=== PATIENT | male | born 1960 | race Two or more races ===

== ENCOUNTER 2024-02-15 14:57 | Outpatient (AMB) | payer MEDICAID, SELFPAY ==
--- NOTE | 2024-02-15 14:59 | A.OFFVIS_ITS ---
Intake Vital Signs 02/15/24 15:01 Height 5 ft 10.08 in Weight 186 lb 11.704 oz BMI 26.7 BP 128/70 Blood Pressure Location Lt brachial Position Sitting Pulse 58 Pulse Source Pulse Oximeter Intake Visit Reasons: Inflammatory polyarthropathy Intake Note: New patient presents today for Inflammatory Polyarthyopathy, referred by PCP. Foreign Law Consultant Required: No Accompanied by: self Allergies Tegaderm Adverse Reaction (Unknown, Uncoded 02/15/24 15:07) Rash HPI HPI Comments History of Present Illness Details Mr. 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 According to records from virtual visit with Dr. Echavarria (06/2020) informed that the patient has been treated with MTX, HCQ . On April 12 he will be having a procedure done on his right great and second toe. He now takes Ibuprofen and has tried MTX, HCQ. He has hx of peptic ulcers PFS Medical History (Updated 02/15/24 @ 15:44 by BHARTI Boss) Swelling of right foot Swelling of foot joint History of ankylosing spondylitis Bilateral hand swelling Surgical History Hx of knee surgery Hx of shoulder surgery Hx of foot surgery History of back surgery Family History Mother No known health problems Father Stroke Social History Alcohol intake: former Patient Tobacco Use Status: Former Tobacco user Review of Systems Const All systems reviewed & are unremarkable except as noted in HPI and below Physical Exam Vital Signs: Last Vital Signs Pulse 58 02/15/24 15:01 BP 128/70 02/15/24 15:01 BMI result Body Mass Index 26.7 APPEARANCE: Patient in no acute distress EYES no redness, normal EARS:? External ear normal. NOSE/SINUS:? Airflow through both nares, no nasal discharge, no bleeding THROAT:? Oral mucosa moist, no ulcerations NECK:? No thyromegaly or masses, no adenopathy, trachea midline. HEART:? Regular rhythm, S1-S2 heard, no murmurs, rubs or gallops. LUNG:? Clear to percussion and auscultation EXTREMITIES:? No edema, no calf tenderness, normal peripheral pulses. NEURO:? Oriented and alert x3.? No focal weakness.? Reflexes symmetric.? Gait normal. SKIN:? There are no skin lesions evident. No objective signs of Raynaud's phenomenon. JOINT EXAM: Cervical Spine:.? Full range of motion without pain; no tenderness. Thoracic Spine:.? No scoliosis.? No tenderness on palpation. Lumbar Spine:.? Alignment normal.? Full range of motion without pain, no tenderness. Chest Wall:.? No tenderness, swelling, increased warmth or erythema. Hands:.? Normal pain-free range of motion with mild tenderness and trace swelling to IP joints, increased warmth or erythema. Able to make a full fist and has a good manufacturing lead strength. Wrists:.? Normal pain-free range of motion without tenderness, swelling, increased warmth or erythema. Elbows:. Normal pain-free range of motion without tenderness, swelling, increased warmth or erythema. Shoulders:.?? Full range of motion without pain. No tenderness, weakness, swelling, increased warmth or erythema. Hips:.? Full range of motion without pain. Hip bursa:.? No tenderness. Knees:.?? Normal pain-free range of motion without tenderness, swelling, increased warmth or erythema.? There is no effusion or crepitation Ankles:.? Normal pain-free range of motion without tenderness, and swelling, but no increased warmth or erythema. Feet:.? Normal pain-free range of motion without tenderness, swelling, increased warmth or erythema. Tender points:? No tenderness to digital palpation at the occiput, trapezius, second rib, lateral epicondyle, knees, greater trochanter and gluteal area bilaterally. Assessment & Plan Assessment & Plan (1) History of ankylosing spondylitis: Code(s): Z87.39 - Personal history of other diseases of the musculoskeletal system and connective tissue (2) Swelling of right foot: Code(s): M79.89 - Other specified soft tissue disorders (3) Swelling of foot joint: Code(s): M25.476 - Effusion, unspecified foot (4) Bilateral hand swelling: Code(s): M79.89 - Other specified soft tissue disorders Plan The patient presents for transfer of care for possible ankylosing spondylitis being HLA B27 positive. Does have a history of being on methotrexate and hydroxychloroquine although the period of time is not clear. He does share that his son has ankylosing spondylitis and another son has psoriasis. The most significant thing on PE is swelling to bilateral ankles and in his across his hand IP joints. The patient has been on amoxicillin for oral infection - multiple cavities. It seems that he is prone to have these infections therefore we will have to be judicious and considering use a bio DMARD. He says that the ibuprofen is very helpful to his back pain. I will obtain some labs and x-rays to establish a baseline. We will consider to start the patient on methotrexate. Follow-up in 1 month I spent 45 minutes reviewing history, evaluating patient and documented Orders: Orders XR hand LT min 3V 02/15/24 M25.476 - Effusion, unspecified foot, M79.89 - Other specified soft tissue disorders, Z87.39 - Personal history of other diseases of the musculoskeletal system and connective tissue XR hand RT min 3V 02/15/24 M25.476 - Effusion, unspecified foot, M79.89 - Other specified soft tissue disorders, Z87.39 - Personal history of other diseases of the musculoskeletal system and connective tissue Erythrocyte Sedimentation Rate 02/15/24 M25.476 - Effusion, unspecified foot, M79.89 - Other specified soft tissue disorders, Z87.39 - Personal history of other diseases of the musculoskeletal system and connective tissue C Reactive Protein 02/15/24 M25.476 - Effusion, unspecified foot, M79.89 - Other specified soft tissue disorders, Z87.39 - Personal history of other diseases of the musculoskeletal system and connective tissue Hepatitis A,B,C Profile 02/15/24 M25.476 - Effusion, unspecified foot, M79.89 - Other specified soft tissue disorders, Z87.39 - Personal history of other diseases of the musculoskeletal system and connective tissue Immunoglobulins,IgG IgA IgM 02/15/24 M25.476 - Effusion, unspecified foot, M79.89 - Other specified soft tissue disorders, Z87.39 - Personal history of other diseases of the musculoskeletal system and connective tissue T Spot TB 02/15/24 M25.476 - Effusion, unspecified foot, M79.89 - Other specified soft tissue disorders, Z87.39 - Personal history of other diseases of the musculoskeletal system and connective tissue Vitamin D 1,25 dihydroxy 02/15/24 M25.476 - Effusion, unspecified foot, M79.89 - Other specified soft tissue disorders, Z87.39 - Personal history of other diseases of the musculoskeletal system and connective tissue XR cervical spine 2V 02/15/24 M79.89 - Other specified soft tissue disorders, Z87.39 - Personal history of other diseases of the musculoskeletal system and connective tissue XR thoracic spine 2V 02/15/24 M79.89 - Other specified soft tissue disorders, Z87.39 - Personal history of other diseases of the musculoskeletal system and connective tissue XR foot LT min 3V 02/15/24 M25.476 - Effusion, unspecified foot, M79.89 - Other specified soft tissue disorders, Z87.39 - Personal history of other diseases of the musculoskeletal system and connective tissue XR foot RT min 3V 02/15/24 M25.476 - Effusion, unspecified foot, M79.89 - Other specified soft tissue disorders, Z87.39 - Personal history of other diseases of the musculoskeletal system and connective tissue Complete Blood Count Auto Diff 02/15/24 M25.476 - Effusion, unspecified foot, M79.89 - Other specified soft tissue disorders, Z87.39 - Personal history of other diseases of the musculoskeletal system and connective tissue Comprehensive Met. Panel 02/15/24 M25.476 - Effusion, unspecified foot, M79.89 - Other specified soft tissue disorders, Z87.39 - Personal history of other diseases of the musculoskeletal system and connective tissue Protein Electrophoresis, Serum 02/15/24 M79.89 - Other specified soft tissue disorders, Z87.39 - Personal history of other diseases of the musculoskeletal system and connective tissue HLA B27 02/15/24 M25.476 - Effusion, unspecified foot, M79.89 - Other specified soft tissue disorders, Z87.39 - Personal history of other diseases of the musculoskeletal system and connective tissue Uric Acid 02/15/24 M25.476 - Effusion, unspecified foot, M79.89 - Other specified soft tissue disorders, Z87.39 - Personal history of other diseases of the musculoskeletal system and connective tissue XR lumbar spine 1V 02/15/24 M79.89 - Other specified soft tissue disorders, Z87.39 - Personal history of other diseases of the musculoskeletal system and connective tissue Coding Level of Care Code New Pt Level 5 (38534) Diagnoses History of ankylosing spondylitis Z87.39 Swelling of right foot M79.89 Swelling of foot joint M25.476 Bilateral hand swelling M79.89
[2024-02-15 15:01] VITALS: BP 128/70; PULSE 58; BMI 26.7
== END 2024-02-15 15:58 | disposition home or self-care (01) ==
LOC: HO.RHE 14:57
PROVIDERS: PCP Internal Medicine; Visit Provider Nurse Practitioner Family
DX: Z87.39 Personal history of other diseases of the musculoskeletal system and connective tissue (principal); M79.89 Other specified soft tissue disorders; M25.476 Effusion, unspecified foot
CPT/HCPCS: 99204

== ENCOUNTER → 2024-02-15 14:57 | Outpatient (BNVA) | payer MEDICAID, SELFPAY | PROVIDERS: PCP Internal Medicine; Visit Provider Nurse Practitioner Family | DX: M06.4 Inflammatory polyarthropathy (principal); M79.89 Other specified soft tissue disorders; M25.476 Effusion, unspecified foot; Z87.39 Personal history of other diseases of the musculoskeletal system and connective tissue; Z79.631 Long term (current) use of antimetabolite agent; Z79.899 Other long term (current) drug therapy | CPT/HCPCS: 99202 ==